=== PATIENT | female | born 1955 | race Caucasian/White ===

== ENCOUNTER 2018-06-15 08:22 | Day surgery (SDC) | payer BC ==
[~2018-06-15 08:22] MED LIST: Metoclopramide 10 MG/2 ML SDV IV PRN; Sodium Chloride 0.9% 10 ML Syringe FLUSH PRN
[2018-06-15] MEDS: Sodium Chloride 0.9% 1,000 ML IV SCH (09:02)
[2018-06-15] MEDS ORDERED: Propofol 200 MG/20 ML SDV ONE (10:00)
--- NOTE | 2018-06-15 17:05 | OR ---
DATE OF OPERATION: 06/15/2018 PREOPERATIVE DIAGNOSIS: Screening colonoscopy. POSTOPERATIVE DIAGNOSIS: Screening colonoscopy. PROCEDURE: Colonoscopy. ANESTHESIA: MAC. ESTIMATED BLOOD LOSS: None. COMPLICATIONS: None. INDICATIONS FOR THE PROCEDURE: The patient is a 62-year-old female, who has previously had a screening colonoscopy 10 years ago, which was normal per patient. She denies any change in bowel habits since that time. The patient is here today for a routine screening colonoscopy. DESCRIPTION OF PROCEDURE: Informed consent was obtained from the patient. The patient was taken to the operating room and placed on the table in left lateral decubitus position. Monitored anesthesia care was administered. Digital rectal exam was performed and was normal. Colonoscope was then advanced through the anus and directed towards the cecum. Cecum was identified by ileocecal valve and appendiceal orifice. Colonoscope was then slowly withdrawn. No masses, no polyps, no areas of ischemia or inflammation, and no AV malformations were identified. The patient did have 2 small sigmoid diverticula identified. Retroflexion was performed in the rectum, which was also unremarkable. Colonoscope was then withdrawn. FINDINGS: Minimal sigmoid diverticulosis. RECOMMENDATIONS: We would recommend repeat screening colonoscopy in 10 years. ENRIQUE /[id number]
== END 2018-06-15 12:20 | disposition home or self-care (01) ==
LOC: LB.SDS 08:22
PROVIDERS: ATTEND Surgery
DX: Z12.11 Encounter for screening for malignant neoplasm of colon (principal); K57.30 Diverticulosis of large intestine without perforation or abscess without bleeding; Z88.5 Allergy status to narcotic agent; Z88.6 Allergy status to analgesic agent; Z98.890 Other specified postprocedural states
CPT/HCPCS: J2704; J7030

== ENCOUNTER 2021-02-12 10:21 | Emergency (ER) | payer BC ==
--- NOTE | 2021-02-12 10:55 | EDM.PDOC ---
ED HPI GENERAL MEDICAL PROBLEM - General Chief Complaint: Cardiovascular Problem Stated Complaint: HEART ISSUE Time Seen by Provider: 02/12/21 10:45 Source of Information: Reports: Patient History Limitations: Reports: No Limitations - History of Present Illness INITIAL COMMENTS - FREE TEXT/NARRATIVE: This is a 65yo F here for feeling of epigastric pressure and possible palpita tions. She notes no heart history. She notes she is on GERD medication and recently had an increase due to poor control of her reflux. She has had a prior EGD showing poor GE sphincter function. She notes she has increased stress and anxiety recently. Onset: Sudden Duration: Waxing/Waning Location: Reports: Chest Severity: Mild Improves with: Reports: None Worsens with: Reports: None Associated Symptoms: Reports: Nausea/Vomiting Middle Chest Pain Score (Numeric/FACES): 4 - Related Data Allergies Allergy/AdvReac Type Severity Reaction Status Date / Time meperidine [From Demerol] Allergy Numbness Verified 02/12/21 11:08 morphine Allergy Nausea and Verified 02/12/21 11:08 Vomiting Home Meds: Home Meds Ascorbic Acid [Vitamin C] 500 mg PO DAILY 02/12/21 [History] Cholecalciferol (Vitamin D3) [Vitamin D3] 1 cap PO DAILY 02/12/21 [History] Famotidine [Pepcid] 20 mg PO DAILY 02/12/21 [History] Fexofenadine [Pooja] 1 tab PO DAILY 02/12/21 [History] Magnesium 1 tab PO DAILY 02/12/21 [History] Zinc 1 tab PO DAILY 02/12/21 [History] Past Medical History Respiratory History: Reports: Asthma Gastrointestinal History: Reports: GERD Musculoskeletal History: Reports: Arthritis - Infectious Disease History Infectious Disease History: Reports: Chicken Pox, Mumps - Past Surgical History GI Surgical History: Reports: Appendectomy Musculoskeletal Surgical History: Reports: Amputation, Other (See Below) Other Musculoskeletal Surgeries/Procedures:: SX on R elbow and arm. Ampute R ring finger and little finger Social & Family History - Family History Family Medical History: No Pertinent Family History - Caffeine Use Caffeine Use: Reports: Coffee Caffeine Use Comment: 2 cups a day ED ROS GENERAL - Review of Systems Review Of Systems: Comprehensive ROS is negative, except as noted in HPI. ED EXAM, GENERAL - Physical Exam Exam: See Below Exam Limited By: No Limitations General Appearance: Alert, WD/WN, No Apparent Distress Ears: Normal External Exam Nose: Normal Inspection Throat/Mouth: Normal Inspection Head: Atraumatic, Normocephalic Neck: Normal Inspection, Supple Respiratory/Chest: No Respiratory Distress, Lungs Clear, Normal Breath Sounds Cardiovascular: Normal Peripheral Pulses, Regular Rate, Rhythm GI/Abdominal: Normal Bowel Sounds Extremities: Normal Inspection Neurological: Alert, Oriented, CN II-XII Intact Psychiatric: Normal Affect, Normal Mood Skin Exam: Warm, Dry, Intact Course - Vital Signs Last Recorded V/S: Last Vital Signs Temp 36.3 C 02/12/21 10:28 Pulse 67 02/12/21 14:49 Resp 14 02/12/21 14:49 BP 119/78 02/12/21 14:49 Pulse Ox 99 02/12/21 14:49 - Orders/Labs/Meds Orders: Active Orders 24 hr Category Date Time Status EKG Documentation Completion [RC] ASDIRECTED Care 02/12/21 10:52 Active Labs: Laboratory Tests 02/12/21 02/12/21 02/12/21 Range/Units 11:10 11:10 11:45 WBC 6.5 (4.0-11.0) K/uL RBC 5.14 (3.80-5.80) M/uL Hgb 14.8 (11.5-16.5) g/dL Hct 44.9 (37.0-47.0) % MCV 87 (76-96) fL MCH 28.8 (27.0-32.0) pg MCHC 33.0 (31.0-35.0) g/dL RDW 14.1 (11.0-16.0) % Plt Count 278 (150-500) K/uL MPV 10.9 H (6.0-10.0) fL Neut % (Auto) 71.8 H (45.0-70.0) % Lymph % (Auto) 15.8 L (20.0-40.0) % [place] % (Auto) 9.4 (3.0-10.0) % Eos % (Auto) 2.5 (1.0-5.0) % Baso % (Auto) 0.5 (0.0-0.5) % Neut # (Auto) 4.68 (2.00-7.50) K/uL Lymph # (Auto) 1.03 L (1.50-4.00) K/uL [place] # (Auto) 0.61 (0.20-0.80) K/uL Eos # (Auto) 0.16 (0.04-0.40) K/uL Baso # (Auto) 0.03 (0.02-0.10) K/uL Sodium 140 (136-145) mmol/L Potassium 4.2 (3.5-5.1) mmol/L Chloride 106 (98-107) mmol/L Carbon Dioxide 26.3 (21.0-32.0) mmol/L Anion Gap 11.9 (5.0-15.0) mmol/L BUN 17 (8-26) mg/dL Creatinine 1.00 (0.55-1.02) mg/dL Est Cr Clr Drug Dosing 53.91 mL/min Estimated GFR (MDRD) 56 L (>60) MLS/MIN BUN/Creatinine Ratio 17.0 (6-25) Glucose 103 H (74-100) mg/dL Calcium 8.7 (8.5-10.1) mg/dL Total Bilirubin 0.7 (0.0-1.0) mg/dL AST 19 (15-37) U/L ALT 27 (12-78) U/L Alkaline Phosphatase 81 (46-116) U/L Troponin I < 0.017 (0.000-0.060) ng/mL Total Protein 7.3 (6.4-8.2) g/dL Albumin 3.8 (3.4-5.0) g/dL Globulin 3.5 (2.2-4.2) g/dL Albumin/Globulin Ratio 1.1 (0.8-2.0) TSH, Ultra Sensitive 1.001 (0.358-3.740) uIU/mL 02/12/21 Range/Units 14:45 WBC (4.0-11.0) K/uL RBC (3.80-5.80) M/uL Hgb (11.5-16.5) g/dL Hct (37.0-47.0) % MCV (76-96) fL MCH (27.0-32.0) pg MCHC (31.0-35.0) g/dL RDW (11.0-16.0) % Plt Count (150-500) K/uL MPV (6.0-10.0) fL Neut % (Auto) (45.0-70.0) % Lymph % (Auto) (20.0-40.0) % [place] % (Auto) (3.0-10.0) % Eos % (Auto) (1.0-5.0) % Baso % (Auto) (0.0-0.5) % Neut # (Auto) (2.00-7.50) K/uL Lymph # (Auto) (1.50-4.00) K/uL [place] # (Auto) (0.20-0.80) K/uL Eos # (Auto) (0.04-0.40) K/uL Baso # (Auto) (0.02-0.10) K/uL Sodium (136-145) mmol/L Potassium (3.5-5.1) mmol/L Chloride (98-107) mmol/L Carbon Dioxide (21.0-32.0) mmol/L Anion Gap (5.0-15.0) mmol/L BUN (8-26) mg/dL Creatinine (0.55-1.02) mg/dL Est Cr Clr Drug Dosing mL/min Estimated GFR (MDRD) (>60) MLS/MIN BUN/Creatinine Ratio (6-25) Glucose (74-100) mg/dL Calcium (8.5-10.1) mg/dL Total Bilirubin (0.0-1.0) mg/dL AST (15-37) U/L ALT (12-78) U/L Alkaline Phosphatase (46-116) U/L Troponin I < 0.017 (0.000-0.060) ng/mL Total Protein (6.4-8.2) g/dL Albumin (3.4-5.0) g/dL Globulin (2.2-4.2) g/dL Albumin/Globulin Ratio (0.8-2.0) TSH, Ultra Sensitive (0.358-3.740) uIU/mL Meds: Medications Discontinued Medications Generic Name Dose Route Start Last Admin Trade Name Freq PRN Reason Stop Dose Admin Lorazepam 0.5 mg 02/12/21 12:41 02/12/21 12:44 Lorazepam 0.5 Mg Tab PO 02/12/21 12:42 0.5 mg ONETIME ONE Administration Departure - Departure Time of Disposition: 15:56 Disposition: Home, Self-Care 01 Clinical Impression: Chest pressure, Chronic GERD, Anxiety Gastroesophageal reflux disease Qualifiers: Esophagitis presence: without esophagitis Qualified Code(s): K21.9 - Gastro- esophageal reflux disease without esophagitis Referrals: PCP,None [Primary Care Provider] - Forms: ED Department Discharge Sepsis Event Note (ED) - Focused Exam Vital Signs: Vital Signs Temp Pulse Resp BP Pulse Ox 02/12/21 14:49 67 14 119/78 99 02/12/21 11:44 127/81 02/12/21 10:34 131/67 02/12/21 10:28 36.3 C 65 18 137/77 98 - Problem List & Annotations (1) Chest pressure SNOMED Code(s): 426740436 Code(s): R07.89 - OTHER CHEST PAIN Status: Acute Priority: High Current Visit: Yes (2) Chronic GERD SNOMED Code(s): 345099255, 525697739 Code(s): K21.9 - GASTRO-ESOPHAGEAL REFLUX DISEASE WITHOUT ESOPHAGITIS Status: Acute Priority: High Current Visit: Yes (3) Anxiety SNOMED Code(s): 31659411 Code(s): F41.9 - ANXIETY DISORDER, UNSPECIFIED Status: Acute Priority: High Current Visit: Yes - Problem List Review Problem List Initiated/Reviewed/Updated: Yes - My Orders Last 24 Hours: My Active Orders 02/12/21 10:52 EKG Documentation Completion [RC] ASDIRECTED - Assessment/Plan Last 24 Hours: My Active Orders 02/12/21 10:52 EKG Documentation Completion [RC] ASDIRECTED Plan: Counseled on chest pressure and continued close f/u and rtc or ER if symptoms return. Discussed GERD and similar symptoms and continued f/u management with Dr. Wells. F/u with PCP in the next few days. Discussed anxiety and trial of Buspar and f/u with PCP. Discussed side effects and f/u if any concerns. Discussed EKG and f/u with PCP for comparison and further assessment and management as needed.
[2021-02-12] MEDS ORDERED: LORazepam 0.5 MG Tab PO ONE (12:41)
--- NOTE | 2021-02-12 14:05 | CR ---
DATE OF SERVICE: 02/12/2021 CLINICAL DATA: Chest pressure. AP CHEST: No priors. The patient has taken a poor inspiration. The heart size is normal. The lungs appear clear. No pneumothorax. No pleural effusions. No evidence of acute intrathoracic disease. [id number] [facility]
== END 2021-02-12 16:03 | disposition home or self-care (01) ==
LOC: LB.ED 10:21
DX: K21.9 Gastro-esophageal reflux disease without esophagitis (principal); F41.9 Anxiety disorder, unspecified; J45.909 Unspecified asthma, uncomplicated; Z88.6 Allergy status to analgesic agent; Z88.5 Allergy status to narcotic agent; Z79.899 Other long term (current) drug therapy
CPT/HCPCS: 36415; 71045; 80053; 84443; 84484; 85025; 93005; 99285-25; A9270-GY